=== PATIENT | female | born 2005 | race Two or more races ===

== ENCOUNTER 2025-04-30 18:24 | Emergency (ER) | payer MEDICAID, OTHER ==
[~2025-04-30] VITALS: Ht 170.2 cm; Wt 60.0 kg
[2025-04-30 18:32] VITALS: TEMP 36.7; O2SAT 100
[2025-04-30] MEDS: ACETAMINOPHEN 325MG TABLET PO ONE (19:40)
[2025-04-30 19:43] LABS: CLARITY URINE CLEAR (CLEAR); COLOR URINE YELLOW (YELLOW); GLUCOSE URINE NEGATIVE (NEGATIVE); KETONES URINE TRACE (NEGATIVE); LEUKOCYTE ESTERASE URINE TRACE (NEGATIVE); NITRITE URINE NEGATIVE (NEGATIVE); OCCULT BLOOD URINE NEGATIVE (NEGATIVE); PH URINE 5.5 (4.5-8.0); PROTEIN URINE NEGATIVE (NEGATIVE)
[2025-04-30 19:59] LABS: BASOPHILS % 0.3 % (0.0-2.0); EOSINOPHILS % 0.3 % (0.0-5.0); HEMATOCRIT. 41.4 % (36.0-48.0); LYMPHOCYTES % 17.9 % (20.0-50.0); MEAN CORPUSCULAR HGB CONC 33.9 g/dL (31.0-37.0); MEAN CORPUSCULAR VOLUME 91.5 fL (81.0-99.0); MEAN PLATELET VOLUME 9.9 fl (7.4-10.4); MONOCYTES % 4.8 % (2.0-8.0); NEUTROPHILS % 76.7 % (40.0-76.0); PLATELET 229 x1000/uL (130-400); RED BLOOD CELL COUNT 4.52 mill/uL (4.2-5.4); RED CELL DISTRIBUTION WIDTH 13.3 % (11.6-14.6); WHITE BLOOD COUNT 12.3 x1000/uL (4.5-11.0)
[2025-04-30 20:11] LABS: RBC URINE 0-2 /hpf (0-2); WBC URINE 0-2 /hpf (0-2)
[2025-04-30 20:12] LABS: BACTERIA URINE TRACE; SQUAMOUS EPITHELIAL CELL URINE FEW /lpf (RARE/1+)
[2025-04-30 20:14] LABS: CARBON DIOXIDE 23 mEq/L (21-32); CHLORIDE 106 mEq/L (98-107); POTASSIUM 3.8 mEq/L (3.5-5.1); SODIUM 140 mEq/L (136-145)
[2025-04-30 20:15] LABS: CALCIUM 9.3 mg/dL (8.7-10.4)
[2025-04-30 20:20] LABS: CREATININE 0.5 mg/dL (0.6-1.0); GLUCOSE 81 mg/dL (70-105); UREA NITROGEN BLOOD 6 mg/dL (9-23)
[2025-04-30 20:42] LABS: B-HCG QUANTITATIVE 15175 mIU/mL (<6)
[2025-04-30] MEDS ORDERED: CEPH500C2 MT (21:41)
[2025-04-30 21:54] VITALS: BP 96/55; PULSE 67; RESP 18; O2SAT 100
== END 2025-04-30 21:56 | disposition home or self-care (01) ==
LOC: ER 18:24
DX: O26.892 Other specified pregnancy related conditions, second trimester (principal); M54.6 Pain in thoracic spine; Z3A.17 17 weeks gestation of pregnancy; N89.8 Other specified noninflammatory disorders of vagina; Z79.899 Other long term (current) drug therapy; W19.XXXA Unspecified fall, initial encounter; Y93.01 Activity, walking, marching and hiking; Y92.89 Other specified places as the place of occurrence of the external cause; Y99.8 Other external cause status
CPT/HCPCS: 36415; 76805; 80048; 81003; 84702; 85025; 86850; 86900; 99284

== ENCOUNTER 2025-09-15 18:07 | Emergency (ER) | payer MEDICAID ==
[~2025-09-15] VITALS: Ht 165.1 cm; Wt 73.0 kg
[~2025-09-15 18:07] MED LIST: CEPH500C2 MT
[2025-09-15 18:20] VITALS: O2SAT 98
[2025-09-15 18:56] LABS: BASOPHILS % 0.3 % (0.0-2.0); EOSINOPHILS % 0.3 % (0.0-5.0); HEMATOCRIT. 36.4 % (36.0-48.0); HEMOGLOBIN. 12.5 g/dL (12.0-16.0); LYMPHOCYTES % 25.5 % (20.0-50.0); MEAN PLATELET VOLUME 9.9 fl (7.4-10.4); MONOCYTES % 6.2 % (2.0-8.0); NEUTROPHILS % 67.7 % (40.0-76.0); PLATELET 204 x1000/uL (130-400); RED BLOOD CELL COUNT 4.07 mill/uL (4.2-5.4); RED CELL DISTRIBUTION WIDTH 13.4 % (11.6-14.6)
[2025-09-15 19:10] LABS: CREATININE 0.6 mg/dL (0.6-1.0); HCG SCREEN POSITIVE; UREA NITROGEN BLOOD 6 mg/dL (9-23)
[2025-09-15 19:11] LABS: ETHANOL BLOOD < 10 mg/dL (<10)
[2025-09-15 19:12] LABS: ASPARTATE AMINOTRANSFERASE 22 IU/L (<34); BILIRUBIN DIRECT < 0.1 mg/dL (<=3.0)
[2025-09-15 19:13] LABS: BILIRUBIN TOTAL 0.4 mg/dL (0.1-1.0); PROTEIN TOTAL 6.1 g/dL (6.0-8.3)
[2025-09-15 19:24] LABS: B-HCG QUANTITATIVE 7150 mIU/mL (<6); INR 0.9
[2025-09-15 19:54] VITALS: BP 104/50; PULSE 98; RESP 15; TEMP 36.8; O2SAT 99
[2025-09-17 06:10] LABS: HSV TYPE 2 SPECIFIC AB IGG Non Reactive (Non Reactive)
== END 2025-09-15 20:13 | disposition short-term general hospital (02) ==
LOC: ER 18:21
DX: O26.893 Other specified pregnancy related conditions, third trimester (principal); Z55.6 Problems related to health literacy; Z3A.37 37 weeks gestation of pregnancy
CPT/HCPCS: 36415; 76815; 80048; 80076; 80320; 83735; 84702; 84703; 85025; 86592; 86695; 86696; 86850; 86900; 87340; 99291; G0480